=== PATIENT | female | born 1950 | race American Indian/Alaskan Native ===

== ENCOUNTER 2017-08-22 10:24 | Emergency (ER) | payer SELFPAY ==
[2017-08-22 11:06] VITALS: BP 135/91
[2017-08-22] MEDS ORDERED: DELTASONE PO ONE (13:41)
[2017-08-22] MEDS ORDERED: ROBITUSSIN PO ONE (13:41)
--- NOTE | 2017-08-22 13:42 | Emergency Department Report ---
Minor Respiratory - HPI Chief Complaint: Upper Respiratory Infection Stated Complaint: COUGHING WHEEZING Time Seen by Provider: 08/22/17 13:39 Duration: 1week Severity: moderate Minor Respiratory: Yes Able to Tolerate Fluids, Yes Cough, No Rhinorrhea, No Sore Throat, No Ear Pain, No Sick Contacts, No Hemoptysis, No Chest Pain, No Shortness of Breath, No Fever Other History: This is a 66-year-old female presents to ED with no problem medical history complaining of cough 1 week. Patient is here with her 83-year- old on was then having similar symptoms for the past 2 weeks. She states yesterday she heard herself wheezing. Patient states she had a fever last week but no fever since then. Patient also states that for the past couple of days his urine smelled very weird sometimes she has intermittently taken sensation with urination. She denies fevers/chills/nausea/vomiting/abdominal pain/chest pains or shortness of breath ED Review of Systems ROS: Stated complaint: COUGHING WHEEZING Other details as noted in HPI Constitutional: denies: chills, fever Eyes: denies: eye pain, eye discharge, vision change ENT: denies: ear pain, throat pain Respiratory: denies: cough, shortness of breath, wheezing Cardiovascular: denies: chest pain, palpitations Endocrine: no symptoms reported Gastrointestinal: denies: abdominal pain, nausea, diarrhea Genitourinary: denies: urgency, dysuria, frequency, discharge Musculoskeletal: denies: back pain, joint swelling, arthralgia Skin: denies: rash, lesions Neurological: denies: headache, weakness, paresthesias Psychiatric: denies: anxiety, depression Hematological/Lymphatic: denies: easy bleeding, easy bruising ED Past Medical Hx - Past Medical History Hx Hypertension: Yes Hx Diabetes: Yes - Surgical History Hx Cholecystectomy: Yes - Social History Smoking Status: Former Smoker Substance Use Type: None - Medications Home Medications: Home Medications Medication Instructions Recorded Confirmed Last Taken Type Benzonatate [Tessalon Perles] 100 mg PO Q8HR #24 capsule 08/22/17 Unknown Rx Ciprofloxacin HCl [Ciprofloxacin 500 mg PO Q12HR #14 tab 08/22/17 Unknown Rx TAB] Sulfamethoxazole/Trimethoprim 1 each PO BID #14 tablet 08/22/17 Unknown Rx [Bactrim DS TAB] Minor Respiratory Exam - Exam General: Vital signs noted. No distress. Alert and acting appropriately. HEENT: Yes Moist Mucous Membranes, No Pharyngeal Erythema, No Pharyngeal Exudates, No Rhinorrhea, No Conjuctival Injection, No Frontal Tenderness, No Maxillary Tenderness Ear: Neither TM Bulge, Neither TM Erythema, Neither EAC Pain, Neither EAC Discharge Neck: Yes Supple, No Adenopathy Lungs: Yes Good Air Exchange, No Wheezes, No Ronchi, No Stridor, No Cough, No Labored Respirations, No Retractions, No Use of Accessory Muscles, No Other Abnormal Lung Sounds Heart: Yes Regular, No Murmur Abdomen: Yes Normal Bowel Sounds, No Tenderness, No Peritoneal Signs Skin: No Rash, No Edema Neurologic: Alert and oriented, no deficits. Musculoskeletal: Unremarkable. ED Course Vital Signs 08/22/17 11:01 Temperature 98.2 F Pulse Rate 78 Respiratory 20 Rate Blood Pressure 135/91 O2 Sat by Pulse 100 Oximetry ED Medical Decision Making - Radiology Data Radiology results: report reviewed, image reviewed Fluoro Time In Minutes: AP CHEST: HISTORY: Cough AP view of the chest demonstrates a normal mediastinal and cardiac contour with clear lungs and normal bony and soft tissue structures. IMPRESSION: Unremarkable AP chest. Transcribed By: TTR Dictated By: JOHAN ROMAN JR, MD Electronically Authenticated By: JOHAN ROMAN JR, MD Signed Date/Time: 08/22/17 1410 - Medical Decision Making 66-year-old female presents with bronchitis and UTI ED course: Chest x-ray are ordered, urinalysis ordered. Chest x-ray shows no acute pulmonary process. Urinalysis positive for bacteria I discussed findings with the patient. I discussed with the patient and she presents him on antibiotics for the unit tract infection. Discussed with the patient and that she will be going home with cough suppressant and to continue to use a humidifier at home. I discussed with the patient to follow up with primary care physician in 3-5 days Discussed the patient take medication as prescribed. I discussed the patient's symptoms were to worsen or new symptoms or to return to ED immediately. Vital signs are normal, patient is in no acute or respiratory distress. - Differential Diagnosis 1. Bronchitis 2. Pneumonia 3 Upper respiratory infection Critical care attestation.: If time is entered above; I have spent that time in minutes in the direct care of this critically ill patient, excluding procedure time. ED Disposition Clinical Impression: Bronchitis UTI (urinary tract infection) Qualifiers: Urinary tract infection type: acute cystitis Hematuria presence: without hematuria Qualified Code(s): N30.00 - Acute cystitis without hematuria Disposition: TO HOME OR SELFCARE Is pt being admited?: No Does the pt Need Aspirin: No Condition: Stable Instructions: Acute Bronchitis (ED), Chronic Bronchitis (ED) Additional Instructions: Make sure to follow up with the primary care physician as discussed. Take all your medications as you've been prescribed. If you have any worsening symptoms or develop new symptoms please return to ED immediately. Prescriptions: Benzonatate [Tessalon Perles] 100 mg PO Q8HR #24 capsule Ciprofloxacin HCl [Ciprofloxacin TAB] 500 mg PO Q12HR #14 tab Sulfamethoxazole/Trimethoprim [Bactrim DS TAB] 1 each PO BID #14 tablet Referrals: [facility] [Outside] - 3-5 Days [facility] [Outside] - 3-5 Days SHERMAN YODER MD [Primary Care Provider] - 3-5 Days Forms: Work/School Release Form(ED) Time of Disposition: 15:37
--- NOTE | 2017-08-22 14:16 | XRay Report ---
AP CHEST: HISTORY: Cough AP view of the chest demonstrates a normal mediastinal and cardiac contour with clear lungs and normal bony and soft tissue structures. IMPRESSION: Unremarkable AP chest.
[2017-08-22 15:17] LABS: Bacteria,Urine 4+ /HPF (Negative); Bilirubin,Urine NEG (Negative); Blood,Urine SM (Negative); Color,Urine Yellow (Yellow); Mucus,Urine 2+ /HPF; Nitrite,Urine POS (Negative); Urobilinogen,Urine < 2.0 mg/dL (<2.0)
== END 2017-08-22 15:56 | disposition home or self-care (01) ==
LOC: ED 10:24
DX: J40 Bronchitis, not specified as acute or chronic (principal); N39.0 Urinary tract infection, site not specified; I10 Essential (primary) hypertension; E11.9 Type 2 diabetes mellitus without complications; Z87.891 Personal history of nicotine dependence
CPT/HCPCS: 71046; 81001; 99284; J7512

== ENCOUNTER 2017-09-06 11:12 | Emergency (ER) | payer SELFPAY ==
[2017-09-06 11:36] VITALS: BP 148/86
--- NOTE | 2017-09-06 13:31 | Emergency Department Report ---
Chief Complaint: Extremity Injury, Lower Stated Complaint: LEFT LEG PAIN - HPI History of Present Illness: 66-year-old with history of diabetes and hypertension on hydrochlorothiazide with bilateral leg pain. Treated for diabetic neuropathy with gabapentin without relief from her PCP. Next time she has more cramping pain in addition to "nerve pain" Takes HCTZ. Has hx of low potassium. BMP ordered - Exam Vital Signs: Vital Signs 09/06/17 11:33 Temperature 97.9 F Pulse Rate 92 H Respiratory 18 Rate Blood Pressure 148/86 O2 Sat by Pulse 98 Oximetry MSE screening note: Focused history and physical exam performed. Due to findings the following was ordered: ED Disposition for MSE Condition: Stable Referrals: PRIMARY CARE, [Primary Care Provider] - 3-5 Days
[2017-09-06 14:27] LABS: BUN/Creatinine Ratio 14; Blood Urea Nitrogen 13 mg/dL (7-17); Hemolysis Index 19
--- NOTE | 2017-09-06 15:06 | Emergency Department Report ---
HPI - General Chief Complaint: Extremity Injury, Lower Time Seen by Provider: 09/06/17 14:58 - HPI HPI: ms. Arceo has hx of diabetic neuropathy. For past 3 night she has hx of cramping leg pain. Gabapentin provided by PCP did not provide relief Gradual onset of BLE pain. No pain to touch. achy crampy quality. ED Past Medical Hx - Past Medical History Hx Hypertension: Yes Hx Diabetes: Yes - Surgical History Hx Cholecystectomy: Yes - Social History Smoking Status: Never Smoker Substance Use Type: None - Medications Home Medications: Home Medications Medication Instructions Recorded Confirmed Last Taken Type Benzonatate [Tessalon Perles] 100 mg PO Q8HR #24 capsule 08/22/17 Unknown Rx Ciprofloxacin HCl [Ciprofloxacin 500 mg PO Q12HR #14 tab 08/22/17 Unknown Rx TAB] Sulfamethoxazole/Trimethoprim 1 each PO BID #14 tablet 08/22/17 Unknown Rx [Bactrim DS TAB] HYDROcodone/APAP 5-325 [[place] 1 each PO Q4HR PRN #10 tablet 09/06/17 Unknown Rx 5/325] ED Review of Systems ROS: Stated complaint: LEFT LEG PAIN Other details as noted in HPI Comment: All other systems reviewed and negative ENT: denies: ear pain Respiratory: denies: cough Cardiovascular: denies: chest pain Physical Exam - Physical Exam Vital Signs: Vital Signs 09/06/17 11:33 Temperature 97.9 F Pulse Rate 92 H Respiratory 18 Rate Blood Pressure 148/86 O2 Sat by Pulse 98 Oximetry Physical Exam: General: Well-appearing, no acute distress HEENT: Normocephalic atraumatic pupils equal round and reactive to light anicteric sclera Nose: no rhinorrhea Oropharynx: Clear mucous membranes no lesions Neck: supple, no meningismus Chest: Clear to auscultation bilaterally no rales rhonchi no wheezes Cardiac: Regular rate and rhythm no murmurs no rubs no gallops Abdomen: Soft nontender nondistended positive bowel sounds no guarding Extremities: No cyanosis no clubbing no edema, 2+ DP pulses bilaterally no tenderness Neuro: Moves all extremities 4, no gross deficits Psychiatric: Alert and oriented 4 normal aspect normal judgment normal insight ED Course Vital Signs 09/06/17 11:33 Temperature 97.9 F Pulse Rate 92 H Respiratory 18 Rate Blood Pressure 148/86 O2 Sat by Pulse 98 Oximetry ED Medical Decision Making - Lab Data Result diagrams: 09/06/17 13:56 - Medical Decision Making ms meza has bilateral lower leg pain DDX: diabetic neuropathy, muscle cramps No indication of DVT or peripheral vascular compromise I recommended close follow-up with her PCP. Prescribed [place] Critical care attestation.: If time is entered above; I have spent that time in minutes in the direct care of this critically ill patient, excluding procedure time. ED Disposition Clinical Impression: Leg cramps Disposition: TO HOME OR SELFCARE Is pt being admited?: No Does the pt Need Aspirin: No Condition: Stable Instructions: Leg Cramps (ED) Prescriptions: HYDROcodone/APAP 5-325 [[place] 5/325] 1 each PO Q4HR PRN #10 tablet PRN Reason: Pain Referrals: PRIMARY CARE, [Primary Care Provider] - 3-5 Days Time of Disposition: 15:05
== END 2017-09-06 15:21 | disposition home or self-care (01) ==
LOC: ED 11:12
DX: R25.2 Cramp and spasm (principal); M79.605 Pain in left leg; M79.604 Pain in right leg; E11.40 Type 2 diabetes mellitus with diabetic neuropathy, unspecified; I10 Essential (primary) hypertension; Z90.49 Acquired absence of other specified parts of digestive tract; Z88.6 Allergy status to analgesic agent; Z88.1 Allergy status to other antibiotic agents; Z88.0 Allergy status to penicillin
CPT/HCPCS: 36415; 80048; 99283

== ENCOUNTER 2017-09-10 09:49 | Emergency (ER) | payer SELFPAY ==
[2017-09-10 10:54] VITALS: BP 152/88
[2017-09-10] MEDS ORDERED: TORADOL IM ONE (12:25)
--- NOTE | 2017-09-10 12:25 | Emergency Department Report ---
Blank Doc - Documentation Documentation: Patient is a 67-year-old [place] female who is presenting with leg pain. Patient is diabetic and states that she is was told last week and murmurs permanent that she has neuropathy however she has not had pain in her legs that she has currently before. Patient takes gabapentin but she states this medication is not helping and she was placed on a narcotic last week which is not helping as well. Patient will have ultrasound performed on bilateral legs and her care will be followed with LEANNA
--- NOTE | 2017-09-10 14:21 | Emergency Department Report ---
ED Lower Extremity HPI - General Chief Complaint: Extremity Problem,Nontraumatic Stated Complaint: LEG PAIN Time Seen by Provider: 09/10/17 12:12 Source: patient Mode of arrival: Ambulatory Limitations: No Limitations - History of Present Illness Initial Comments: This is a 67-year-old female nontoxic, well nourished in appearance, no acute signs of distress presents to the ED with c/o of bilateral lower extremity pain 3 weeks. Patient has been diagnosed with diabetic neuropathy pain and has been received gabapentin and with no relief. Patient denies any trauma to the region. Patient denies any numbness, tingling, fever, chills or nausea, vomiting, joint swelling, joint redness, chest pain, shortness of breath, headache, stiff neck. Patient denies any calf pain tenderness. Patient denies any recent travels, long car rides, or recent hospital stays. Patient states allergies to aspirin, ciprofloxacin and penicillin. Past medical history is hypertension and diabetes. MD Complaint: leg injury -: week(s) (3) Injury: Leg: Right, Left Severity: mild Severity scale (0 -10): 8 Improves With: nothing Worsens With: nothing Associated Symptoms: ambulatory. denies: snap/pop sensation, swelling, numbness , tingling, unable to bear weight, able to partially bear weight - Related Data Previous Rx's Medication Instructions Recorded Last Taken Type Benzonatate [Tessalon Perles] 100 mg PO Q8HR #24 capsule 08/22/17 Unknown Rx Ciprofloxacin HCl [Ciprofloxacin 500 mg PO Q12HR #14 tab 08/22/17 Unknown Rx TAB] Sulfamethoxazole/Trimethoprim 1 each PO BID #14 tablet 08/22/17 Unknown Rx [Bactrim DS TAB] HYDROcodone/APAP 5-325 [[place] 1 each PO Q4HR PRN #10 tablet 09/06/17 Unknown Rx 5/325] Ibuprofen [Motrin] 600 mg PO Q8H PRN #30 tablet 09/10/17 Unknown Rx traMADol [Ultram] 50 mg PO Q6HR PRN #12 tablet 09/10/17 Unknown Rx Allergies Allergy/AdvReac Type Severity Reaction Status Date / Time aspirin Allergy Nausea Verified 08/22/17 11:00 ciprofloxacin [From Cipro] Allergy Unknown Verified 09/06/17 11:37 Penicillins Allergy Itching Verified 08/22/17 11:00 ED Review of Systems ROS: Stated complaint: LEG PAIN Other details as noted in HPI Constitutional: denies: chills, fever Eyes: denies: eye pain, eye discharge, vision change ENT: denies: ear pain, throat pain Respiratory: denies: cough, shortness of breath, wheezing Cardiovascular: denies: chest pain, palpitations Endocrine: no symptoms reported Gastrointestinal: denies: abdominal pain, nausea, diarrhea Genitourinary: denies: urgency, dysuria, discharge Musculoskeletal: arthralgia. denies: back pain, joint swelling Skin: denies: rash, lesions Neurological: denies: headache, weakness, paresthesias Psychiatric: denies: anxiety, depression Hematological/Lymphatic: denies: easy bleeding, easy bruising ED Past Medical Hx - Past Medical History Hx Hypertension: Yes Hx Diabetes: Yes - Surgical History Hx Cholecystectomy: Yes - Social History Smoking Status: Never Smoker Substance Use Type: None - Medications Home Medications: Home Medications Medication Instructions Recorded Confirmed Last Taken Type Benzonatate [Tessalon Perles] 100 mg PO Q8HR #24 capsule 08/22/17 Unknown Rx Ciprofloxacin HCl [Ciprofloxacin 500 mg PO Q12HR #14 tab 08/22/17 Unknown Rx TAB] Sulfamethoxazole/Trimethoprim 1 each PO BID #14 tablet 08/22/17 Unknown Rx [Bactrim DS TAB] HYDROcodone/APAP 5-325 [[place] 1 each PO Q4HR PRN #10 tablet 09/06/17 Unknown Rx 5/325] Ibuprofen [Motrin] 600 mg PO Q8H PRN #30 tablet 09/10/17 Unknown Rx traMADol [Ultram] 50 mg PO Q6HR PRN #12 tablet 09/10/17 Unknown Rx ED Physical Exam - General Limitations: No Limitations General appearance: alert, in no apparent distress - Head Head exam: Present: atraumatic, normocephalic - Eye Eye exam: Present: normal appearance, PERRL, EOMI Pupils: Present: normal accommodation - ENT ENT exam: Present: normal exam, normal orophraynx, mucous membranes moist, TM's normal bilaterally, normal external ear exam - Neck Neck exam: Present: normal inspection, full ROM. Absent: tenderness, meningismus, lymphadenopathy, thyromegaly - Respiratory Respiratory exam: Present: normal lung sounds bilaterally. Absent: respiratory distress, wheezes, rales, rhonchi, stridor, chest wall tenderness, accessory muscle use, decreased breath sounds, prolonged expiratory - Cardiovascular Cardiovascular Exam: Present: regular rate, normal rhythm, normal heart sounds. Absent: bradycardia, tachycardia, irregular rhythm, systolic murmur, diastolic murmur, rubs, gallop - GI/Abdominal GI/Abdominal exam: Present: soft, normal bowel sounds. Absent: distended, tenderness, guarding, rebound, rigid, diminished bowel sounds - Extremities Exam Extremities exam: Present: normal inspection, full ROM, normal capillary refill. Absent: tenderness, pedal edema, joint swelling, calf tenderness - Expanded Lower Extremity Exam Left Hip exam: Present: normal inspection (bilateral exam), full ROM, external rotation, internal rotation, pelvic stability. Absent: tenderness, swelling, abrasion, laceration, ecchymosis, deformity, crepidus, dislocation, erythema, shortening Upper Leg exam: Present: normal inspection (bilateral exam), full ROM. Absent: tenderness, swelling, abrasion, laceration, ecchymosis, deformity, crepidus, dislocation, erythema Knee exam: Present: normal inspection (bilateral exam), full ROM, full knee extension. Absent: tenderness, swelling, abrasion, laceration, ecchymosis, deformity, crepidus, dislocation, erythema, effusion, pain w/ pronation/ supination, posterior draw sign, pain/laxity with valgus, pain/laxity with varus Lower Leg exam: Present: normal inspection (bilateral exam), full ROM. Absent: tenderness, swelling, abrasion, laceration, ecchymosis, deformity, crepidus, dislocation, erythema, palpable cord, Delia's sign Ankle exam: Present: normal inspection (bilateral exam), full ROM. Absent: tenderness, swelling, abrasion, laceration, ecchymosis, deformity, crepidus, dislocation, erythema, anterior draw sign Foot/Toe exam: Present: normal inspection (bilateral exam), full ROM. Absent: tenderness, swelling, abrasion, laceration, ecchymosis, deformity, crepidus, dislocation, erythema, amputation, puncture wound, foreign body, calcaneal tenderness, tenderness at base of 5th metatarsal, nail avulsion, subungual hematoma Neuro vascular tendon exam: Present: no vascular compromise (bilateral exam). Absent: pulse deficit, abnormal cap refill, motor deficit, sensory deficit, tendon deficit, extremity cold to touch, pallor, abnormal 2-point discrimination , decreased fine/light touch, foot drop, peroneal nerve deficit, significant pain with passive ROM of distal joint Gait: Positive: observed and normal (bilateral exam) - Back Exam Back exam: Present: normal inspection, full ROM. Absent: tenderness, CVA tenderness (R), CVA tenderness (L), muscle spasm, paraspinal tenderness, vertebral tenderness, rash noted - Neurological Exam Neurological exam: Present: alert, oriented X3, CN II-XII intact, normal gait, reflexes normal - Psychiatric Psychiatric exam: Present: normal affect, normal mood - Skin Skin exam: Present: warm, dry, intact, normal color. Absent: rash ED Course Vital Signs 09/10/17 10:50 Temperature 97.8 F Pulse Rate 81 Respiratory 16 Rate Blood Pressure 152/88 O2 Sat by Pulse 98 Oximetry - Reevaluation(s) Reevaluation #1: 09/10/17 14:22 Patient is speaking in full sentences with no signs of distress noted. - Consultations Consultation #1: 09/10/17 14:22 Patient has been consulted with Dr. Ceballos about patient history, physical exam , and labs and examined and screened/examined patient and agrees discharge plan for care. ED Lower Extremity MDM - Medical Decision Making This is a 67-year-old female that presents with diabetic neuropathy pain. Patient is stable and was examined by me and Dr. Ceballos. Us doppler of bilateral lower extremities obtained and negative. Patient is notified of results with no questions ntoed. Negative calf tenderness or holmans test. Patient received Toradol 60 mg IM in the ED which patient stated that that his symptoms has improved and subsided. Patient is discharged with Ultram and Motrin. Patient was instructed not to operate any machinery while taking ultrasound due to drowsiness. Patient was instructed Follow-up with a primary care doctor in 3-5 days or if symptoms worsen and continue return to emergency room as soon as possible. At time of discharge, the patient does not seem toxic or ill in appearance. No acute signs of distress noted. Patient agrees to discharge treatment plan of care. No further questions noted by the patient. Critical care attestation.: If time is entered above; I have spent that time in minutes in the direct care of this critically ill patient, excluding procedure time. ED Disposition Clinical Impression: Diabetic neuropathy Qualifiers: Diabetes mellitus type: other specified (including KULWANT) Diabetes mellitus complication detail: with other neurological complication Qualified Code(s): E13.49 - Other specified diabetes mellitus with other diabetic neurological complication Disposition: TO HOME OR SELFCARE Is pt being admited?: No Does the pt Need Aspirin: No Condition: Stable Instructions: Diabetic Neuropathy (ED), Ibuprofen (By mouth), Tramadol (By mouth) Additional Instructions: Follow-up with a primary care doctor in 3-5 days or if symptoms worsen and continue return to emergency room as soon as possible. Prescriptions: Ibuprofen [Motrin] 600 mg PO Q8H PRN #30 tablet PRN Reason: Pain traMADol [Ultram] 50 mg PO Q6HR PRN #12 tablet PRN Reason: Pain Referrals: PRIMARY CARE, [Primary Care Provider] - 3-5 Days NEERU MORRISSEY MD [Staff Physician] - 3-5 Days [facility] [Outside] - 3-5 Days [facility] [Outside] - 3-5 Days Forms: Work/School Release Form(ED)
== END 2017-09-10 15:00 | disposition home or self-care (01) ==
LOC: ED 09:49
DX: E13.49 Other specified diabetes mellitus with other diabetic neurological complication (principal); M79.605 Pain in left leg; M79.604 Pain in right leg; Z88.6 Allergy status to analgesic agent; Z88.0 Allergy status to penicillin; Z88.1 Allergy status to other antibiotic agents
CPT/HCPCS: 82962; 93970; 96372; 99283; J1885

== ENCOUNTER 2018-01-16 10:01 | Emergency (ER) | payer SELFPAY ==
[2018-01-16] MEDS ORDERED: NACL 0.9% 1000 ML 1,000 ML IV ONE (10:39)
[2018-01-16] MEDS ORDERED: ZOFRAN IV ONE (10:39)
[2018-01-16] MEDS ORDERED: ANTIVERT PO ONE ×2 (10:39→12:44)
--- NOTE | 2018-01-16 10:39 | Emergency Department Report ---
ED Dizziness HPI - General Chief Complaint: Dizziness Stated Complaint: DIZZINESS/BLURRED VISON/NAUSEA Time Seen by Provider: 01/16/18 10:38 Source: patient, family Mode of arrival: Ambulatory Limitations: No Limitations - History of Present Illness Initial Comments: Patient here complaining of dizziness, blurred vision and nausea for 2 days. She said when she stands she feels like the room is spinning. Patient says she is concerned about her blood pressure being elevated at 150/79. Patient has a history of diabetes and high blood pressure. Patient is also complaining of sore throat pain and ear pain . Pain is her right ear 6/10 and a cane. No drainage or trauma .She says she feels like her ears feels strange, might have vertigo. "I need to purge my body a faint". "I have very bad sinus problem". Sore throat is 3 out of 10 that comes and goes. No medication taken. Reports nausea without vomiting . Denies any abdominal pain. Denies any chest pain or shortness of breath. Denies any drooling. Denies any headache or neck pain or stiffness. MD Complaint: dizziness, other (vertigo, sore throats, ear pain, blurred vision) Onset/Timin -: days(s) Timing: gradual onset Description: sense of movement, "room spinning", off-balance, nausea, other ( blurred vision) History of Same: No History of Trauma: No Severity: mild Improves With: rest Worsens With: movement, position Associated Symptoms: other (sore throat, ear pain). denies: ataxia, chest pain , confusion, cough, diaphoresis, fever/chills, loss of appetite, malaise, rash, seizure, shortness of breath, syncope, weakness - Related Data Previous Rx's Medication Instructions Recorded Last Taken Type Benzonatate [Tessalon Perles] 100 mg PO Q8HR #24 capsule 08/22/17 Unknown Rx Ciprofloxacin HCl [Ciprofloxacin 500 mg PO Q12HR #14 tab 08/22/17 Unknown Rx TAB] Sulfamethoxazole/Trimethoprim 1 each PO BID #14 tablet 08/22/17 Unknown Rx [Bactrim DS TAB] HYDROcodone/APAP 5-325 [[place] 1 each PO Q4HR PRN #10 tablet 09/06/17 Unknown Rx 5/325] Ibuprofen [Motrin] 600 mg PO Q8H PRN #30 tablet 09/10/17 Unknown Rx traMADol [Ultram] 50 mg PO Q6HR PRN #12 tablet 09/10/17 Unknown Rx Acetaminophen/Codeine [Tylenol 1 tab PO Q6H PRN #12 tab 01/16/18 Unknown Rx /Codeine # 3 tab] Azithromycin [Zithromax Z-BUD] 250 mg PO DAILY 5 Days #6 tab 01/16/18 Unknown Rx Cetirizine HCl [ZyrTEC] 10 mg PO QAM 14 Days #14 capsule 01/16/18 Unknown Rx Neomy/Polymyx B/Hc (Otic) Soln 4 drops OTIC TID 7 Days #1 bottle 01/16/18 Unknown Rx [Cortisporin (Otic) Soln] Allergies Allergy/AdvReac Type Severity Reaction Status Date / Time aspirin Allergy Nausea Verified 08/22/17 11:00 ciprofloxacin [From Cipro] Allergy Unknown Verified 09/06/17 11:37 Penicillins Allergy Itching Verified 08/22/17 11:00 ED Review of Systems ROS: Stated complaint: DIZZINESS/BLURRED VISON/NAUSEA Other details as noted in HPI Constitutional: denies: chills, fever Eyes: vision change (blurred vision). denies: eye pain, eye discharge ENT: ear pain, throat pain. denies: dental pain, hearing loss, epistaxis, congestion Respiratory: denies: cough, orthopnea, shortness of breath, SOB with exertion, SOB at rest, stridor, wheezing Cardiovascular: denies: chest pain, palpitations, edema, syncope Gastrointestinal: denies: abdominal pain, nausea, vomiting, diarrhea, constipation Genitourinary: denies: discharge Musculoskeletal: denies: back pain, joint swelling, arthralgia, myalgia Skin: denies: rash, lesions Neurological: vertigo. denies: headache, weakness, numbness, paresthesias, confusion, abnormal gait ED Past Medical Hx - Past Medical History Previous Medical History?: Yes Hx Hypertension: Yes Hx Diabetes: Yes Additional medical history: sinusitis - Surgical History Past Surgical History?: Yes Hx Cholecystectomy: Yes - Family History Family history: diabetes, hypertension - Social History Smoking Status: Former Smoker Substance Use Type: Prescribed - Medications Home Medications: Home Medications Medication Instructions Recorded Confirmed Last Taken Type Benzonatate [Tessalon Perles] 100 mg PO Q8HR #24 capsule 08/22/17 Unknown Rx Ciprofloxacin HCl [Ciprofloxacin 500 mg PO Q12HR #14 tab 08/22/17 Unknown Rx TAB] Sulfamethoxazole/Trimethoprim 1 each PO BID #14 tablet 08/22/17 Unknown Rx [Bactrim DS TAB] HYDROcodone/APAP 5-325 [[place] 1 each PO Q4HR PRN #10 tablet 09/06/17 Unknown Rx 5/325] Ibuprofen [Motrin] 600 mg PO Q8H PRN #30 tablet 09/10/17 Unknown Rx traMADol [Ultram] 50 mg PO Q6HR PRN #12 tablet 09/10/17 Unknown Rx Acetaminophen/Codeine [Tylenol 1 tab PO Q6H PRN #12 tab 01/16/18 Unknown Rx /Codeine # 3 tab] Azithromycin [Zithromax Z-BUD] 250 mg PO DAILY 5 Days #6 tab 01/16/18 Unknown Rx Cetirizine HCl [ZyrTEC] 10 mg PO QAM 14 Days #14 capsule 01/16/18 Unknown Rx Neomy/Polymyx B/Hc (Otic) Soln 4 drops OTIC TID 7 Days #1 bottle 01/16/18 Unknown Rx [Cortisporin (Otic) Soln] ED Physical Exam - General Limitations: No Limitations General appearance: alert, in no apparent distress - Head Head exam: Present: atraumatic, normocephalic, normal inspection, other (normal exam) - Eye Eye exam: Present: normal appearance, PERRL, EOMI. Absent: conjunctival injection, nystagmus Pupils: Present: normal accommodation - ENT ENT exam: Present: normal exam, normal orophraynx, mucous membranes moist, other (bilateral maxillary and frontal sinuses nontender to palpate., Nasal mucosa congested with erythema and clear drainage). Absent: TM's normal bilaterally (bilateral TM congested with right TM erythema and right EAC red and swollen without any drainage.), normal external ear exam (red swollen without any drainage, right EAC. Right tragus tender to palpate) - Neck Neck exam: Present: normal inspection, full ROM, other (no C-spine tenderness). Absent: tenderness, meningismus, lymphadenopathy, thyromegaly - Respiratory Respiratory exam: Present: normal lung sounds bilaterally. Absent: respiratory distress, wheezes, rales, rhonchi, stridor, chest wall tenderness, accessory muscle use, decreased breath sounds, prolonged expiratory - Cardiovascular Cardiovascular Exam: Present: regular rate, normal rhythm. Absent: systolic murmur, diastolic murmur, rubs, gallop - GI/Abdominal GI/Abdominal exam: Present: soft, normal bowel sounds. Absent: distended, tenderness, guarding, rebound, rigid, organomegaly, mass, bruit, pulsatile mass , hernia - Extremities Exam Extremities exam: Present: normal inspection, full ROM, normal capillary refill , other (no clubbing, cyanosis or edema. Positive pulses to all extremities and no neurovascular compromise). Absent: tenderness, pedal edema, joint swelling, calf tenderness - Back Exam Back exam: Present: normal inspection, full ROM, other (ambulates without any difficulties.). Absent: tenderness, CVA tenderness (R), CVA tenderness (L), muscle spasm, paraspinal tenderness, vertebral tenderness, rash noted - Neurological Exam Neurological exam: Present: alert, oriented X3, normal gait, reflexes normal. Absent: motor sensory deficit - Expanded Neurological Exam Expanded Neurological exam: Absent: innattentive, memory loss-remote event, memory loss- recent event, ataxia, receptive aphasia, expressive aphasia, total aphasia, tremor, protecting the airway Patient oriented to: Present: person, place, time Speech: Present: fluid speech Cranial nerves: EOM's Intact: Normal, Gag Reflex: Normal, Tongue Deviation: Normal, Nystagmus: Normal, Facial Sensation: Normal, Facial Palsy with Forehead Movement: Normal, Facial Palsy without Forehead Movement: Normal Cerebellar function: Finger to Nose: Normal, Romberg: Abnormal Right Upper motor neuron: Pronator Drift: Normal, Sensory Extinction: Normal Sensory exam: Upper Extremity Light Touch: Normal, Upper Extremity Temperature: Normal, UE 2 Point Discrimination: Normal, Lower Extremity Light Touch: Normal, Lower Extremity Pin Prick: Normal, LE 2 Point Discrimination: Normal Motor strength exam: RUE: 5, LUE: 5, RLE: 5, LLE: 5 Best Eye Response ([place]): (4) open spontaneously Best Motor Response ([place]): (6) obeys commands Best Verbal Response ([place]): (2) incomprehsible sounds [place] Total: 12 - Psychiatric Psychiatric exam: Present: normal affect, normal mood - Skin Skin exam: Present: warm, dry, intact, normal color. Absent: rash ED Course Vital Signs 01/16/18 01/16/18 01/16/18 10:07 11:05 13:58 Temperature 97.8 F Pulse Rate 90 65 Pulse Rate [ 68 Lying] Pulse Rate [ 74 Sitting] Pulse Rate [ 79 Standing] Respiratory 26 H 18 Rate Blood Pressure 150/79 Blood Pressure 143/94 [Left] Blood Pressure 130/91 [Lying] Blood Pressure 144/78 [Sitting] Blood Pressure 143/77 [Standing] O2 Sat by Pulse 100 97 Oximetry - Reevaluation(s) Reevaluation #1: 01/16/18 12:15 Patient stable, she was given Antivert 25 mg by mouth and Zofran 8 mg IV and she says she feels better. She is currently receiving normal saline IV fluid. Labs are stable. Orthostatic BP year stable .visual acuity is stable Reevaluation #2: 01/16/18 12:45 Patient completed her IV fluid and she says she is still feeling in dizzy with some nausea. She received Phenergan 25 mg by mouth, another dose of Antivert 25 mg by mouth R [place] 5/325 one tablet by mouth and we'll reevaluate. Neurologic status is intact. Reevaluation #3: 01/16/18 13:29 Patient says she is feeling better but her right ear is still hurting. She received IV bolus and pain is better. She says she still feels a little lightheaded but it's much better after second dose of Antivert. ED Medical Decision Making - Lab Data Result diagrams: 01/16/18 10:48 01/16/18 10:48 Lab Results 01/16/18 01/16/18 Range/Units 10:48 10:48 WBC 4.7 (4.5-11.0) K/mm3 RBC 5.35 H (3.65-5.03) M/mm3 Hgb 15.5 H (10.1-14.3) gm/dl Hct 46.4 H (30.3-42.9) % MCV 87 (79-97) fl MCH 29 (28-32) pg MCHC 33 (30-34) % RDW 13.6 (13.2-15.2) % Plt Count 235 (140-440) K/mm3 Lymph % (Auto) 26.3 (13.4-35.0) % [place] % (Auto) 8.9 H (0.0-7.3) % Eos % (Auto) 1.5 (0.0-4.3) % Baso % (Auto) 0.4 (0.0-1.8) % Lymph # 1.2 (1.2-5.4) K/mm3 [place] # 0.4 (0.0-0.8) K/mm3 Eos # 0.1 (0.0-0.4) K/mm3 Baso # 0.0 (0.0-0.1) K/mm3 Seg Neutrophils % 62.9 (40.0-70.0) % Seg Neutrophils # 3.0 (1.8-7.7) K/mm3 Sodium 137 (137-145) mmol/L Potassium 3.8 (3.6-5.0) mmol/L Chloride 96.5 L (98-107) mmol/L Carbon Dioxide 28 (22-30) mmol/L Anion Gap 16 mmol/L BUN 23 H (7-17) mg/dL Creatinine 0.9 (0.7-1.2) mg/dL Estimated GFR > 60 ml/min BUN/Creatinine Ratio 26 % Glucose 165 H (65-100) mg/dL Calcium 9.3 (8.4-10.2) mg/dL Total Bilirubin 0.60 (0.1-1.2) mg/dL AST 22 (5-40) units/L ALT 22 (7-56) units/L Alkaline Phosphatase 132 H (35-129) units/L Troponin T < 0.010 (0.00-0.029) ng/mL Total Protein 7.2 (6.3-8.2) g/dL Albumin 3.6 L (3.9-5) g/dL Albumin/Globulin Ratio 1.0 % - EKG Data -: EKG Interpreted by Me (interpreted by attending physician) EKG shows normal: sinus rhythm (69 bpm) Rate: normal - EKG Data When compared to previous EKG there are: no significant change Interpretation: no acute changes, normal EKG - Radiology Data Radiology results: report reviewed CT scan of the head and brain reveals no acute abnormality Patient: TRAMAINE MCCLURE MR#: [id number] : 1950 Acct:[id number] Age/Sex: 67 / F ADM Date: 01/16/18 Loc: ED Attending Dr: Ordering Physician: THANG KESSLER Date of Service: 01/16/18 Procedure(s): CT head/brain wo con Accession Number(s): [id number] cc: THANG KESSLER CRANIAL CT SCAN: Dizzy. Serial contiguous axial images were obtained through the cranium. Intravenous contrast material was not administered. The ventricles are normal in size and appearance. There is no mass effect or midline shift. No areas of abnormally increased or decreased attenuation are seen. No mass lesion is seen. The mastoid air cells and visualized portions of the sinuses are normal. IMPRESSION: Cranial CT scan within normal limits. Transcribed By: ADAM Dictated By: PAN HACKETT MD Electronically Authenticated By: PAN HACKETT MD Signed Date/Time: 01/16/181232 DD/ 32 TD/TT: 01/16/181232 - Medical Decision Making ED course: This is a 67-year-old female presents to Hospital complaining of dizziness, lightheadedness and feeling of the room spinning around when she stands up. She is complaining of sore throat and right ear ache. She says she has a history of sinus infection. Didn't take any medication prior to coming to the hospital. Patient does have a primary care physician and she has a history of diabetes and high blood pressure. She was not having any chest pain or shortness of breath. Patient was examined by myself and found to have right otitis media with right otitis externa, nasal congestion. Orthostatic vital signs are stable, visual acuity is within normal limits. Patient had CT scan was dictated by radiologists and report reviewed by myself and CT is normal. EKG normal. Laboratory included CBC and CMP was stable. Results of lab and CT scan explained to patient. I also explained diagnosis to patient and she voiced understanding. A/P 1:Vertigo: Patient given Antivert 50 mg total and 25 mg Antivert and she is better. IV fluid 1 L given in emergency room. CT scan of the head without contrast shows normal exam.Intervals and axes as noted on EKG report. 2:Nausea-nausea without vomiting-Zofran 8 mg IV and nausea and Phenergan 25 mg by mouth and now resolved 3: Otitis externa-will place on Cortisporin Otic 4: Otitis media: Will place on Z-Bud 5: Otalgia and pharyngitis-patient given [place] 5/325 one tablet for relief of pain. I discussed with her that she needs to gargle warm salt water for sore throats and I will put her on Tylenol 3 to help with earache and sore throat. Medication educated on medication, diagnostic test results, lab results, diagnosis and need to follow-up with her primary care physician. She voiced understanding. PT Discharged home in stable condition to follow up with her primary care physician in 4 days. Vital signs are stable she is afebrile. She is feeling better. Discharged home with her family with prescription for Zyrtec, Z-Bud, Tylenol 3 and Corticosporin body OTIC. Patient informed to return to the emergency room for symptoms worsen symptoms otherwise follow-up with primary care physician - Differential Diagnosis brain abnormality, vestibular abnormality, dehydration, upper respiratory Critical care attestation.: If time is entered above; I have spent that time in minutes in the direct care of this critically ill patient, excluding procedure time. ED Disposition Clinical Impression: Vertigo, Otalgia of right ear Otitis media Qualifiers: Otitis media type: unspecified Chronicity: acute Qualified Code(s): H66.90 - Otitis media, unspecified, unspecified ear Otitis externa Qualifiers: Otitis externa type: unspecified type Chronicity: acute Laterality: right Qualified Code(s): H60.501 - Unspecified acute noninfective otitis externa, right ear Pharyngitis Qualifiers: Pharyngitis/tonsillitis etiology: unspecified etiology Qualified Code(s): J02.9 - Acute pharyngitis, unspecified Disposition: DC-01 TO HOME OR SELFCARE Is pt being admited?: No Does the pt Need Aspirin: No Condition: Stable Instructions: Pharyngitis (ED), Otitis Externa (ED), Vertigo (ED), Otitis Media (ED) Additional Instructions: Please follow up with primary care physician in 4 days. Take Medication as prescribed Do not drive or operate heavy machinery while taking and Tylenol No. 3 as this medication causes drowsiness Prescriptions: Acetaminophen/Codeine [Tylenol /Codeine # 3 tab] 1 tab PO Q6H PRN #12 tab PRN Reason: pain Azithromycin [Zithromax Z-BUD] 250 mg PO DAILY 5 Days #6 tab Cetirizine HCl [ZyrTEC] 10 mg PO QAM 14 Days #14 capsule Neomy/Polymyx B/Hc (Otic) Soln [Cortisporin (Otic) Soln] 4 drops OTIC TID 7 Days #1 bottle Referrals: PRIMARY CARE, [Primary Care Provider] - 01/20/18 Forms: Work/School Release Form(ED)
[2018-01-16 11:08] LABS: Basophils % (Auto) 0.4 % (0.0-1.8); Eosinophils # (Auto) 0.1 K/mm3 (0.0-0.4); Eosinophils % (Auto) 1.5 % (0.0-4.3); Hematocrit 46.4 % (30.3-42.9); Hemoglobin 15.5 gm/dl (10.1-14.3); Lymphocytes # (Auto) 1.2 K/mm3 (1.2-5.4); Lymphocytes % (Auto) 26.3 % (13.4-35.0); Mean Corpuscular HGB Conc 33 % (30-34); Mean Corpuscular Hemoglobin 29 pg (28-32); Mean Corpuscular Volume 87 fl (79-97); Monocytes # (Auto) 0.4 K/mm3 (0.0-0.8); Monocytes % (Auto) 8.9 % (0.0-7.3); Platelet Count 235 K/mm3 (140-440); Red Blood Count 5.35 M/mm3 (3.65-5.03); Red Cell Distribution Width 13.6 % (13.2-15.2)
[2018-01-16 11:19] LABS: Alanine Aminotransferase 22 units/L (7-56); Albumin 3.6 g/dL (3.9-5); BUN/Creatinine Ratio 26; Blood Urea Nitrogen 23 mg/dL (7-17); Calcium 9.3 mg/dL (8.4-10.2); Hemolysis Index 4
[2018-01-16] MEDS ORDERED: PHENERGAN PO ONE (12:44)
[2018-01-16] MEDS ORDERED: NORCO 5/325 PO ONE (12:44)
--- NOTE | 2018-01-16 12:55 | Cat Scan Report ---
CRANIAL CT SCAN: Dizzy. Serial contiguous axial images were obtained through the cranium. Intravenous contrast material was not administered. The ventricles are normal in size and appearance. There is no mass effect or midline shift. No areas of abnormally increased or decreased attenuation are seen. No mass lesion is seen. The mastoid air cells and visualized portions of the sinuses are normal. IMPRESSION: Cranial CT scan within normal limits.
[2018-01-16 13:59] VITALS: BP 143/94
== END 2018-01-16 14:00 | disposition home or self-care (01) ==
LOC: ED 10:01
DX: H60.91 Unspecified otitis externa, right ear (principal); H66.91 Otitis media, unspecified, right ear; R55 Syncope and collapse; J02.9 Acute pharyngitis, unspecified; I10 Essential (primary) hypertension; E11.9 Type 2 diabetes mellitus without complications; Z87.891 Personal history of nicotine dependence; Z88.6 Allergy status to analgesic agent; Z88.1 Allergy status to other antibiotic agents; Z88.0 Allergy status to penicillin
CPT/HCPCS: 36415; 70450; 80053; 82962; 84484; 85025; 93005; 93010; 96361; 96374; 99284; J2405; J7030; Q0169

== ENCOUNTER 2019-05-13 14:00 | Emergency (ER) | payer SELFPAY ==
--- NOTE | 2019-05-13 15:28 | Event Note ---
ED Screening Note Date of service: 05/13/19 Time: 15:26 ED Screening Note: 68 y/o female comes in for worsen GANT This initial assessment/diagnostic orders/clinical plan/treatment(s) is/are subject to change based on patients health status, clinical progression and re- assessment by fellow clinical providers in the ED. Further treatment and workup at subsequent clinical providers discretion. Patient/guardian urged not to elope from the ED as their condition may be serious if not clinically assessed and managed. Initial orders include:
[2019-05-13 15:29] LABS: Alanine Aminotransferase 14 units/L (7-56); Albumin 3.8 g/dL (3.9-5); BUN/Creatinine Ratio 19; Blood Urea Nitrogen 17 mg/dL (7-17); Calcium 9.4 mg/dL (8.4-10.2); Hemolysis Index 20
[2019-05-13 15:38] LABS: Hemoglobin 15.7 gm/dl (10.1-14.3); Mean Corpuscular HGB Conc 33 % (30-34); Mean Corpuscular Volume 86 fl (79-97); Red Blood Count 5.49 M/mm3 (3.65-5.03); Red Cell Distribution Width 13.4 % (13.2-15.2)
--- NOTE | 2019-05-13 16:16 | Cat Scan Report ---
CT HEAD WITHOUT CONTRAST INDICATION : severe headache and dizziness. TECHNIQUE: Axial imaging performed from the skull apex through the skull base without the use of con trast. Sagittal and coronal reformatted images. All CT scans at this location are performed using C T dose reduction for ALARA by means of automated exposure control. COMPARISON: 07/07/2018 FINDINGS: Parenchyma: No acute intracranial hemorrhage or parenchymal abnormality. Ventricles: Ventricles are normal in size and appear symmetric. Bones: No acute osseous abnormality. Sinuses: Sinuses and mastoid air cells are clear. Soft tissues: Soft tissues including the orbits appear normal. IMPRESSION: No acute abnormality. Signer Name: Diego Wong Jr, MD Signed: 05/13/2019 4:12 PM Workstation Name: [id number]
[2019-05-13 16:45] LABS: Bacteria,Urine 1+ /HPF (Negative); Bilirubin,Urine NEG (Negative); Blood,Urine SM (Negative); Color,Urine Amber (Yellow); Mucus,Urine FEW /HPF; Urobilinogen,Urine < 2.0 mg/dL (<2.0)
[2019-05-13 16:47] LABS: Protein,Urine >500 mg/dL (Negative)
[2019-05-13] MEDS ORDERED: MORPHINE 2 MG/1 ML INJ IM ONE (17:00)
[2019-05-13] MEDS ORDERED: ONDANSETRON 4 MG ODT TAB PO ONE (17:01)
--- NOTE | 2019-05-13 17:07 | Emergency Department Report ---
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 She a lso has had 3 CTs of her head either for earache headache or Rosario's palsy over the last 1 year. She arrives again in the emergency department for management of "a migraine headache". She states that she has been previously diagnosed with migraine and that her last migraine headache was in April. She does not receive care from a neurologist. She states that she made an appointment at 3:30 for her family physician today but she didn't think she could wait that long. She informs me that her headache is somewhat migratory but now at the vortex of her head. It was gradual in onset. She denies any focal neurological change. She states that her Rosario's palsy has essentially resolved. She can't describe the quality of the pain. She states that it is her typical migraine. She denies fever or chills. She denies neck soreness or stiffness. She denies photophobia or phonophobia. She does have nausea with the headache and has vomited minimal amount 1. She states she takes Motrin migraine but this was not effective this time. Apparently she has had severe headaches for many yea rs. Timing/Duration: other (2-3 days) Quality: moderate, severe Head Injury Location: other Recent Head Trauma: frequent headaches Associated Symptoms: denies symptoms, other (except nausea) Allergies/Adverse Reactions: Allergies aspirin Allergy (Verified 08/22/17 11:00) Nausea ciprofloxacin [From Cipro] Allergy (Verified 09/06/17 11:37) Unknown Penicillins Allergy (Verified 08/22/17 11:00) Itching Home Medications: Ambulatory Orders Benzonatate [Tessalon Perles] 100 mg PO Q8HR #24 capsule 08/22/17 Ciprofloxacin HCl [Ciprofloxacin TAB] 500 mg PO Q12HR #14 tab 08/22/17 Sulfamethoxazole/Trimethoprim [Bactrim DS TAB] 1 each PO BID #14 tablet 08/22/17 HYDROcodone/APAP 5-325 [[place] 5/325] 1 each PO Q4HR PRN #10 tablet 09/06/17 Ibuprofen [Motrin] 600 mg PO Q8H PRN #30 tablet 09/10/17 traMADol [Ultram] 50 mg PO Q6HR PRN #12 tablet 09/10/17 Acetaminophen/Codeine [Tylenol /Codeine # 3 tab] 1 tab PO Q6H PRN #12 tab 01/16/18 Azithromycin [Zithromax Z-ROSANA] 250 mg PO DAILY 5 Days #6 tab 01/16/18 Cetirizine HCl [ZyrTEC] 10 mg PO QAM 14 Days #14 capsule 01/16/18 Neomy/Polymyx B/Hc (Otic) Soln [Cortisporin (Otic) Soln] 4 drops OTIC TID 7 Days #1 bottle 01/16/18 Azithromycin [Zithromax Z-ROSANA] 250 mg PO DAILY #1 pack 07/07/18 Tramadol HCl [Ultram] 50 mg PO Q6H PRN #10 tablet 07/07/18 Valacyclovir HCl [Valtrex] 1,000 mg PO BID #14 tab 07/07/18 predniSONE [Deltasone] 40 mg PO QDAY #10 tab 07/07/18 Butalb/Acetaminophen/Caffeine [Fioricet 50-300-40 mg CAP] 1 cap PO Q6HR PRN #14 cap 05/13/19 Ondansetron [Zofran ODT TAB] 4 mg PO Q6HR PRN #7 tab.rapdis 05/13/19 ED Review of Systems ROS: Stated complaint: VOMIT/SEVERE PAIN Other details as noted in HPI Constitutional: denies: chills, fever Eyes: denies: eye pain, eye discharge, vision change ENT: denies: ear pain, throat pain Respiratory: denies: cough, shortness of breath, wheezing Cardiovascular: denies: chest pain, palpitations Endocrine: no symptoms reported Gastrointestinal: nausea, vomiting. denies: abdominal pain, diarrhea Genitourinary: denies: urgency, dysuria, discharge Musculoskeletal: denies: back pain, joint swelling, arthralgia Skin: denies: rash, lesions Neurological: as per HPI, headache. denies: weakness, numbness, paresthesias, confusion Psychiatric: denies: anxiety, depression Hematological/Lymphatic: denies: easy bleeding, easy bruising ED Past Medical Hx - Past Medical History Hx Hypertension: Yes Hx Diabetes: Yes Hx Headaches / Migraines: Yes Additional medical history: sinusitis - Surgical History Hx Cholecystectomy: Yes - Social History Smoking Status: Never Smoker Substance Use Type: None - Medications Home Medications: Home Medications Medication Instructions Recorded Confirmed Last Taken Type Benzonatate [Tessalon Perles] 100 mg PO Q8HR #24 capsule 08/22/17 Unknown Rx Ciprofloxacin HCl [Ciprofloxacin 500 mg PO Q12HR #14 tab 08/22/17 Unknown Rx TAB] Sulfamethoxazole/Trimethoprim 1 each PO BID #14 tablet 08/22/17 Unknown Rx [Bactrim DS TAB] HYDROcodone/APAP 5-325 [[place] 1 each PO Q4HR PRN #10 tablet 09/06/17 Unknown Rx 5/325] Ibuprofen [Motrin] 600 mg PO Q8H PRN #30 tablet 09/10/17 Unknown Rx traMADol [Ultram] 50 mg PO Q6HR PRN #12 tablet 09/10/17 Unknown Rx Acetaminophen/Codeine [Tylenol 1 tab PO Q6H PRN #12 tab 01/16/18 Unknown Rx /Codeine # 3 tab] Azithromycin [Zithromax Z-ROSANA] 250 mg PO DAILY 5 Days #6 tab 01/16/18 Unknown Rx Cetirizine HCl [ZyrTEC] 10 mg PO QAM 14 Days #14 capsule 01/16/18 Unknown Rx Neomy/Polymyx B/Hc (Otic) Soln 4 drops OTIC TID 7 Days #1 bottle 01/16/18 Unknown Rx [Cortisporin (Otic) Soln] Azithromycin [Zithromax Z-ROSANA] 250 mg PO DAILY #1 pack 07/07/18 Unknown Rx Tramadol HCl [Ultram] 50 mg PO Q6H PRN #10 tablet 07/07/18 Unknown Rx Valacyclovir HCl [Valtrex] 1,000 mg PO BID #14 tab 07/07/18 Unknown Rx predniSONE [Deltasone] 40 mg PO QDAY #10 tab 07/07/18 Unknown Rx Butalb/Acetaminophen/Caffeine 1 cap PO Q6HR PRN #14 cap 05/13/19 Unknown Rx [Fioricet 50-300-40 mg CAP] Ondansetron [Zofran ODT TAB] 4 mg PO Q6HR PRN #7 tab.rapdis 05/13/19 Unknown Rx ED Physical Exam - General Limitations: No Limitations General appearance: alert, other (appears uncomfortable) - Head Head exam: Present: atraumatic, normocephalic - Eye Eye exam: Present: normal appearance. Absent: scleral icterus - ENT ENT exam: Present: mucous membranes moist. Absent: TM's normal bilaterally (chronic perforation on the left. No discharge in the EAC.) - Neck Neck exam: Present: normal inspection, full ROM. Absent: tenderness, meningismus - Respiratory Respiratory exam: Present: normal lung sounds bilaterally. Absent: respiratory distress - Cardiovascular Cardiovascular Exam: Present: regular rate, normal rhythm. Absent: systolic murmur, diastolic murmur, rubs, gallop - GI/Abdominal GI/Abdominal exam: Present: soft, normal bowel sounds. Absent: distended, tenderness, guarding, rebound, rigid - Extremities Exam Extremities exam: Present: normal inspection - Back Exam Back exam: Present: normal inspection - Neurological Exam Neurological exam: Present: alert, oriented X3, CN II-XII intact, normal gait, other (cerebellar testing was normal). Absent: motor sensory deficit - Psychiatric Psychiatric exam: Present: normal affect, normal mood - Skin Skin exam: Present: warm, dry, intact, normal color. Absent: rash ED Course Vital Signs 05/13/19 05/13/19 14:07 17:11 Temperature 98.2 F Pulse Rate 77 Respiratory 18 18 Rate Blood Pressure 169/101 O2 Sat by Pulse 100 Oximetry - Reevaluation(s) Reevaluation #1: Intake improved. The appropriate for outpatient management. She'll be referred to a neurologist. 05/13/19 17:40 Reevaluation #2: Patient did not take her metoprolol today because she was vomiting. She'll be given a dose prior to discharge. 05/13/19 18:00 ED Medical Decision Making - Lab Data Result diagrams: 05/13/19 14:48 05/13/19 14:48 Laboratory Results - last 24 hr 05/13/19 05/13/19 05/13/19 14:48 14:48 16:01 WBC 7.8 RBC 5.49 H Hgb 15.7 H Hct 47.0 H MCV 86 MCH 29 MCHC 33 RDW 13.4 Sodium 139 Potassium 3.6 Chloride 105.3 Carbon Dioxide 21 L Anion Gap 16 BUN 17 Creatinine 0.9 Estimated GFR > 60 BUN/Creatinine Ratio 19 Glucose 123 H Calcium 9.4 Total Bilirubin 0.80 AST 17 ALT 14 Alkaline Phosphatase 131 H Total Protein 7.4 Albumin 3.8 L Albumin/Globulin Ratio 1.1 Urine Color Melissa Urine Turbidity Slightly-cloudy Urine pH 5.0 Ur Specific Barre 1.026 Urine Protein >500 Urine Glucose (UA) Neg Urine Ketones Neg Urine Blood Sm Urine Nitrite Neg Urine Bilirubin Neg Urine Urobilinogen < 2.0 Ur Leukocyte Esterase Tr Urine WBC (Auto) 8.0 H Urine RBC (Auto) 5.0 U Epithel Cells (Auto) 15.0 H Urine Bacteria (Auto) 1+ Urine Mucus Few Critical care attestation.: If time is entered above; I have spent that time in minutes in the direct care of this critically ill patient, excluding procedure time. ED Disposition Clinical Impression: Cephalalgia Qualifiers: Headache type: unspecified Headache chronicity pattern: acute headache Intractability: not intractable Qualified Code(s): R51 - Headache Disposition: - TO HOME OR SELFCARE Is pt being admited?: No Does the pt Need Aspirin: No Condition: Stable Instructions: Acute Headache (ED) Additional Instructions: Return to the emergency department worsening pain, vomiting, fever, chills, or any weakness or numbness or any acute change. I would recommend follow-up with her primary care physician and a neurologist. Rx as needed. Recheck your blood pressure. Follow-up with your primary care provider. Prescriptions: Butalb/Acetaminophen/Caffeine [Fioricet 50-300-40 mg CAP] 1 cap PO Q6HR PRN #14 cap PRN Reason: Headache Ondansetron [Zofran ODT TAB] 4 mg PO Q6HR PRN #7 tab.rapdis PRN Reason: Nausea Referrals: ANTHONY OWENS MD [Staff Physician] - 2-3 Days usual, primary care [Other] - 3-5 Days Time of Disposition: 17:41
[2019-05-13] MEDS ORDERED: BUTALB/ACETAMINOPHEN/CAFFEINE TAB PO ONE (17:47)
[2019-05-13] MEDS ORDERED: METOPROLOL TARTRATE 50 MG TAB PO ONE (17:56)
[2019-05-13 18:07] LABS: Platelet Count 191 K/mm3 (140-440)
[2019-05-13 18:54] VITALS: BP 168/97
== END 2019-05-13 18:59 | disposition home or self-care (01) ==
LOC: ED 14:00
DX: R51 Headache (principal); R11.2 Nausea with vomiting, unspecified; I10 Essential (primary) hypertension; E11.9 Type 2 diabetes mellitus without complications; Z90.49 Acquired absence of other specified parts of digestive tract; Z79.899 Other long term (current) drug therapy; Z88.0 Allergy status to penicillin; Z88.6 Allergy status to analgesic agent; Z88.8 Allergy status to other drugs, medicaments and biological substances
CPT/HCPCS: 36415; 70450; 80053; 81001; 85027; 96372; 99284; J2270; Q0162

== ENCOUNTER 2019-05-14 20:41 | Emergency (ER) | payer SELFPAY ==
--- NOTE | 2019-05-14 21:03 | Event Note ---
ED Screening Note Date of service: 05/14/19 Time: 21:00 ED Screening Note: 68 y/o female c/o worsening headache. Patient was seen yesterday for the same complaint. Head CT done yesterday which was negative any acute abnormalities. Blood work was stable. Headache improved after treatment yesterday before discharge. This initial assessment/diagnostic orders/clinical plan/treatment(s) is/are subject to change based on patients health status, clinical progression and re- assessment by fellow clinical providers in the ED. Further treatment and workup at subsequent clinical providers discretion. Patient/guardian urged not to elope from the ED as their condition may be serious if not clinically assessed and managed. Initial orders include:
--- NOTE | 2019-05-14 22:05 | Emergency Department Report ---
ED Headache HPI - General Chief Complaint: Headache Stated Complaint: HEAD PAIN Time Seen by Provider: 05/14/19 21:00 Source: patient, RN notes reviewed Exam Limitations: no limitations - History of Present Illness Initial Comments: This is a 68-year-old -[place] female who presents to the emergency room with a headache for 2 days. She reports nausea and dizziness that is worse with movement or standing. His medical history of hypertension and diabetes type 2. Patient states she was seen in the emergency room and started on some pain medication which is not improving symptoms. She denies visual changes, palpitations, chest pain, cough, fever, or chills. Timing/Duration: 24 hours Quality: constant, throbbing Head Injury Location: global Recent Head Trauma: frequent headaches Modifying Factors: improves with: exposure to light, movement Associated Symptoms: nausea/vomiting. denies: confusion, fatigue, facial pain, fever/chills, flushing, loss of consciousness, nasal congestion, nasal drainage, numbness in legs/feet, rash, seizures, sinus infection, stiff neck, vision changes, weakness Allergies/Adverse Reactions: Allergies aspirin Allergy (Verified 08/22/17 11:00) Nausea ciprofloxacin [From Cipro] Allergy (Verified 09/06/17 11:37) Unknown metronidazole [From Flagyl] Allergy (Verified 05/14/19 21:46) Vomiting Penicillins Allergy (Verified 08/22/17 11:00) Itching Home Medications: Ambulatory Orders Benzonatate [Tessalon Perles] 100 mg PO Q8HR #24 capsule 08/22/17 Ciprofloxacin HCl [Ciprofloxacin TAB] 500 mg PO Q12HR #14 tab 08/22/17 Sulfamethoxazole/Trimethoprim [Bactrim DS TAB] 1 each PO BID #14 tablet 08/22/17 HYDROcodone/APAP 5-325 [[place] 5/325] 1 each PO Q4HR PRN #10 tablet 09/06/17 Ibuprofen [Motrin] 600 mg PO Q8H PRN #30 tablet 09/10/17 traMADol [Ultram] 50 mg PO Q6HR PRN #12 tablet 09/10/17 Acetaminophen/Codeine [Tylenol /Codeine # 3 tab] 1 tab PO Q6H PRN #12 tab 01/16/18 Azithromycin [Zithromax Z-ROSANA] 250 mg PO DAILY 5 Days #6 tab 01/16/18 Cetirizine HCl [ZyrTEC] 10 mg PO QAM 14 Days #14 capsule 01/16/18 Neomy/Polymyx B/Hc (Otic) Soln [Cortisporin (Otic) Soln] 4 drops OTIC TID 7 Days #1 bottle 01/16/18 Azithromycin [Zithromax Z-ROSANA] 250 mg PO DAILY #1 pack 07/07/18 Tramadol HCl [Ultram] 50 mg PO Q6H PRN #10 tablet 07/07/18 Valacyclovir HCl [Valtrex] 1,000 mg PO BID #14 tab 07/07/18 predniSONE [Deltasone] 40 mg PO QDAY #10 tab 07/07/18 Butalb/Acetaminophen/Caffeine [Fioricet 50-300-40 mg CAP] 1 cap PO Q6HR PRN #14 cap 05/13/19 Ondansetron [Zofran ODT TAB] 4 mg PO Q6HR PRN #7 tab.rapdis 05/13/19 ED Review of Systems ROS: Stated complaint: HEAD PAIN Other details as noted in HPI Constitutional: denies: chills, fever Respiratory: denies: cough, shortness of breath, wheezing Cardiovascular: denies: chest pain, palpitations Gastrointestinal: nausea. denies: abdominal pain, vomiting, diarrhea Skin: denies: rash, lesions Neurological: headache. denies: weakness, paresthesias Psychiatric: denies: anxiety, depression ED Past Medical Hx - Past Medical History Hx Hypertension: Yes Hx Diabetes: Yes Hx Headaches / Migraines: Yes Additional medical history: sinusitis - Surgical History Hx Cholecystectomy: Yes - Social History Smoking Status: Never Smoker Substance Use Type: None - Medications Home Medications: Home Medications Medication Instructions Recorded Confirmed Last Taken Type Benzonatate [Tessalon Perles] 100 mg PO Q8HR #24 capsule 08/22/17 Unknown Rx Ciprofloxacin HCl [Ciprofloxacin 500 mg PO Q12HR #14 tab 08/22/17 Unknown Rx TAB] Sulfamethoxazole/Trimethoprim 1 each PO BID #14 tablet 08/22/17 Unknown Rx [Bactrim DS TAB] HYDROcodone/APAP 5-325 [[place] 1 each PO Q4HR PRN #10 tablet 09/06/17 Unknown Rx 5/325] Ibuprofen [Motrin] 600 mg PO Q8H PRN #30 tablet 09/10/17 Unknown Rx traMADol [Ultram] 50 mg PO Q6HR PRN #12 tablet 09/10/17 Unknown Rx Acetaminophen/Codeine [Tylenol 1 tab PO Q6H PRN #12 tab 01/16/18 Unknown Rx /Codeine # 3 tab] Azithromycin [Zithromax Z-ROSANA] 250 mg PO DAILY 5 Days #6 tab 01/16/18 Unknown Rx Cetirizine HCl [ZyrTEC] 10 mg PO QAM 14 Days #14 capsule 01/16/18 Unknown Rx Neomy/Polymyx B/Hc (Otic) Soln 4 drops OTIC TID 7 Days #1 bottle 01/16/18 Unknown Rx [Cortisporin (Otic) Soln] Azithromycin [Zithromax Z-ROSANA] 250 mg PO DAILY #1 pack 07/07/18 Unknown Rx Tramadol HCl [Ultram] 50 mg PO Q6H PRN #10 tablet 07/07/18 Unknown Rx Valacyclovir HCl [Valtrex] 1,000 mg PO BID #14 tab 07/07/18 Unknown Rx predniSONE [Deltasone] 40 mg PO QDAY #10 tab 07/07/18 Unknown Rx Butalb/Acetaminophen/Caffeine 1 cap PO Q6HR PRN #14 cap 05/13/19 Unknown Rx [Fioricet 50-300-40 mg CAP] Ondansetron [Zofran ODT TAB] 4 mg PO Q6HR PRN #7 tab.rapdis 05/13/19 Unknown Rx ED Physical Exam - General Limitations: No Limitations General appearance: alert, in no apparent distress, obese - Neck Neck exam: Present: normal inspection - Respiratory Respiratory exam: Present: normal lung sounds bilaterally. Absent: respiratory distress - Cardiovascular Cardiovascular Exam: Present: regular rate, normal rhythm. Absent: systolic murmur, diastolic murmur, rubs, gallop - GI/Abdominal GI/Abdominal exam: Present: soft, normal bowel sounds - Neurological Exam Neurological exam: Present: alert, oriented X3 - Expanded Neurological Exam Expanded Patient oriented to: Present: person, place, time Speech: Present: fluid speech Cranial nerves: EOM's Intact: Normal, Gag Reflex: Normal, Tongue Deviation: Normal, Nystagmus: Normal, Facial Sensation: Normal - Psychiatric Psychiatric exam: Present: normal affect, normal mood - Skin Skin exam: Present: warm, dry, intact, normal color. Absent: rash ED Course Vital Signs 05/14/19 05/14/19 20:56 22:00 Temperature 98.2 F 98.0 F Pulse Rate 70 67 Respiratory 20 12 Rate Blood Pressure 145/109 Blood Pressure 192/98 [Left] O2 Sat by Pulse 98 98 Oximetry ED Medical Decision Making - Medical Decision Making This is a 68 y.o. female that presents with headache for 2 days. Patient is stable and was examined by me. Patient seen in this emergency room yesterday with similar symptoms. CT of head with negative acute findings. Given reglan, benadryl, and normal saline 1L bolus once in ER. Improved headache on reevaluation. Patient reports only taking blood pressure medication once and BP elevated. Given dexamethasone and metoprolol. Instructed to continue taking Fioricet for pain. Follow up with neurology. Discharged home in stable condition. Follow up with PCP in 24-72 hours. Critical care attestation.: If time is entered above; I have spent that time in minutes in the direct care of this critically ill patient, excluding procedure time. ED Disposition Clinical Impression: Migraine Qualifiers: Migraine type: without aura Status migrainosus presence: with status migrainosus Intractability: not intractable Qualified Code(s): G43.001 - Zenon errol without aura, not intractable, with status migrainosus Hypertension Qualifiers: Hypertension type: essential hypertension Qualified Code(s): I10 - Essential (primary) hypertension Disposition: - TO HOME OR SELFCARE Is pt being admited?: No Does the pt Need Aspirin: No Condition: Stable Instructions: Migraine Headache (ED), Acute Headache (ED), Hypertension (ED) Additional Instructions: Take medication at start of headache. Moderate caffeine intake. Eat at scheduled times or 3 meals a day with snacks. Follow up with primary care provider in 24-72 hours. Referrals: [facility] [Provider Group] - 3-5 Days [facility] [Provider Group] - 3-5 Days [facility] [Provider Group] - 3-5 Days Time of Disposition: 00:33
[2019-05-14] MEDS ORDERED: METOCLOPRAMIDE 10 MG/2 ML INJ IV ONE (22:18)
[2019-05-14] MEDS ORDERED: diphenhydrAMINE 50 MG/ML VIAL IV ONE (22:18)
[2019-05-14] MEDS ORDERED: SODIUM CHLORIDE 0.9% 1000 ML 1,000 ML IV ONE (22:19)
[2019-05-14] MEDS ORDERED: dexAMETHasone 4 MG/ML VIAL IV ONE (23:17)
[2019-05-15 01:14] VITALS: BP 144/86
== END 2019-05-15 01:20 | disposition home or self-care (01) ==
LOC: ED 20:41
DX: G43.909 Migraine, unspecified, not intractable, without status migrainosus (principal); I10 Essential (primary) hypertension; E11.9 Type 2 diabetes mellitus without complications; Z90.49 Acquired absence of other specified parts of digestive tract; Z88.6 Allergy status to analgesic agent; Z88.0 Allergy status to penicillin; Z88.1 Allergy status to other antibiotic agents; Z79.899 Other long term (current) drug therapy
CPT/HCPCS: 96361; 96374; 96375; 99282; J1100; J1200; J2765; J7030